=== PATIENT | female | born 1945 | race Caucasian/White ===

== ENCOUNTER 2024-12-19 10:54 | Outpatient (CLI) | payer MEDICARE, MEDICAID ==
--- NOTE | 2024-12-19 12:20 | RADIOLOGY REPORT ---
PROCEDURE: MR MRI LUMBAR SPINE Indication: WEDGE COMPRESSION FRACTURE OF UNSP LUMBAR VERTEBRA, INIT COMPARISON: None TECHNIQUE: Multiplanar multisequence images of the the lumbar spine are obtained. FINDINGS: For the purpose of this examination, there are 5 lumbar vertebral body types counting from the lumbosacral junction. Examination degraded by motion. L1 vertebralm body compression fracture with 30% loss height. Mild retropulsion, approximately 3 mm. There is associated marrow edema, T1 hypointense signal extending to the posterior T1 cortex. The Remaining lumbar heights are maintained. Moderate multilevel disc space narrowing, desiccation. Conus terminates at the L1 level. L4 vertebral body t2/stir bright lesion measuring 2.6 T12-L1: 4 mm disc protrusion. Fypw-wz-zxfigmhh facet and flavum hypertrophy. Thecal sac measures 14 mm AP. No spinal canal stenosis. Qcku-ti-hnhxcfwt right and mild left neural foraminal stenosis. L1-2: 3 mm disc protrusion. Moderate facet and flavum hypertrophy. Thecal sac measures 12 mm AP. No spinal canal stenosis. Moderate to severe left and moderate right neural foraminal stenosis. L2-3: 3 mm disc protrusion. Moderate facet and flavum hypertrophy. Thecal sac measures 12 mm AP. No spinal canal stenosis. Tkff-fr-ploeutbp bilateral neural foraminal stenosis. L3-4: Tiny disc protrusion. Moderate facet and flavum hypertrophy. Thecal sac measures 13 mm AP. No spinal canal stenosis. Onjb-zj-oxrrcuyk bilateral neural foraminal stenosis. L4-5: 3 mm disc protrusion. Moderate facet and flavum hypertrophy. Thecal sac measures 10 mm AP. No spinal canal stenosis. Vxii-xe-acrqvkki bilateral neural foraminal stenosis. L5-S1: 3 mm disc protrusion. Moderate facet and flavum hypertrophy. No spinal canal stenosis. Bhfk-ao-epitwxkw right neural foraminal stenosis. Bilateral renal cysts. Dilated common bile duct intrahepatic ducts with the CBD measuring 14 mm. IMPRESSION: Acute to subacute L1 vertebral body compression fracture with 30% loss height, 3 mm retropulsion. Atypical lesion in the L4 vertebral body demonstrating increased STIR signal measuring 2.6 cm with differential considerations including metastases/myeloma /primary malignancy, atypical hemangioma. Recommend MRI lumbar spine with contrast and correlation with clinical risk factors for malignancy. Oncology consultation recommended for further management. Moderate lumbar degenerative disc disease. No high-grade spinal canal stenosis. Multilevel swkv-yx-ijhtqade neural foraminal stenosis as described Dilated common bile duct measuring 14 mm. There is also dilatation of the intrahepatic ducts. Recommend MRCP and GI consultation to further characterized exclude obstructing biliary/ampullary / pancreatic etiology.
== END 2024-12-19 23:59 | disposition home or self-care (01) ==
LOC: MRI02 10:54
PROVIDERS: ATTEND Nurse Practitioner Occupational Health
DX: S32.010A Wedge compression fracture of first lumbar vertebra, initial encounter for closed fracture (principal); M51.27 Other intervertebral disc displacement, lumbosacral region; M47.817 Spondylosis without myelopathy or radiculopathy, lumbosacral region; M48.07 Spinal stenosis, lumbosacral region; M51.24 Other intervertebral disc displacement, thoracic region; M47.814 Spondylosis without myelopathy or radiculopathy, thoracic region; M48.04 Spinal stenosis, thoracic region; N28.1 Cyst of kidney, acquired; X58.XXXA Exposure to other specified factors, initial encounter; Y93.89 Activity, other specified; Y92.89 Other specified places as the place of occurrence of the external cause; Y99.8 Other external cause status
CPT/HCPCS: 72148

== ENCOUNTER 2025-02-01 08:30 | Outpatient (CLI) | payer MEDICARE, MEDICAID ==
--- NOTE | 2025-02-01 10:41 | RADIOLOGY REPORT ---
EXAM: MR MRI LUMBAR SPINE CLINICAL HISTORY: DISEASE OF SPINAL CORD COMPARISON: MR MRI LUMBAR SPINE on DOS: 12/19/24 TECHNIQUE: MRI imaging of the lumbar was performed on a MRI imaging system without intravenous contrast. FINDINGS GENERAL Multilevel disc degeneration. Alignment: Grade 1 retrolisthesis of L1 on L2. Vertebrae: Moderate compression deformity of the L1 vertebral body with 29.0% height loss. Conus: Conus medullaris terminates at the L1 level. T12-L1: Disc desiccation. Disc bulge with superimposed disc protrusion. No spinal canal stenosis. Mild right foraminal stenosis. Facet arthrosis. L1-2: Grade 1 retrolisthesis of L1 on L2 by 2.7 mm. Disc desiccation. Mild disc height loss. Mild spinal canal stenosis. Mild left foraminal stenosis. The facet joints are normal. L2-3: Disc desiccation. No spinal canal stenosis. Mild left foraminal stenosis. The facet joints are normal. L3-4: Disc desiccation. No spinal canal or neural foraminal stenosis. The facet joints are normal. L4-5: Disc desiccation and 2.7 mm disc bulge. Mild spinal canal stenosis. Mild left foraminal stenosis. Facet arthrosis. L5-S1: Disc desiccation. No spinal canal or neural foraminal stenosis. Facet arthrosis. IMPRESSION: 1. Multilevel disc degeneration. Moderate compression deformity of L1 with 29.0% height loss. Multilevel spinal canal stenosis, most pronounced and mild at L4-L5. Multilevel foraminal stenosis, most pronounced and mild at L4-L5.
[2025-02-01] MEDS ORDERED: GADOTERATE MEGLUMINE 7.5 MMOL/15 ML VIAL IV ONE (18:08)
== END 2025-02-01 23:59 | disposition home or self-care (01) ==
LOC: MRI 08:30
PROVIDERS: ATTEND Nurse Practitioner Occupational Health
DX: M51.369 Other intervertebral disc degeneration, lumbar region without mention of lumbar back pain or lower extremity pain (principal); G95.9 Disease of spinal cord, unspecified; M43.8X6 Other specified deforming dorsopathies, lumbar region; M48.061 Spinal stenosis, lumbar region without neurogenic claudication
CPT/HCPCS: 72158; A9575